=== PATIENT | female | born 1975 | race Caucasian/White ===

== ENCOUNTER 2019-05-04 13:32 | Emergency (ER) | payer MEDICAID ==
[~2019-05-04] VITALS: Ht 175.3 cm; Wt 108.9 kg
[2019-05-04] MEDS ORDERED: ALBUTEROL SULF 2.5 MG/0.5ML(0.5%) NEB SOLN ONE (13:44)
[2019-05-04] MEDS ORDERED: IPRATROPIUM BROM 0.5 MG/2.5ML INH SOL ONE (13:44)
[2019-05-04] MEDS ORDERED: methylPREDNISolone SOD SUCC 125 MG/2 ML VL IV ONE (13:45)
[2019-05-04] MEDS ORDERED: ALBUTEROL SULF 2.5 MG/0.5ML(0.5%) NEB SOLN NEB ONE (13:45)
[2019-05-04] MEDS ORDERED: IPRATROPIUM BROM 0.5 MG/2.5ML INH SOL NEB ONE (13:45)
[2019-05-04] MEDS ORDERED: SODIUM CHLORIDE 0.9% 1,000 ML IV ONE (13:47)
[2019-05-04 14:08] LABS: Hemoglobin 12.8 g/dL (12.2-16.2); Mean Corpuscular Hemoglobin 30.6 pg (28.0-32.0); Mean Corpuscular Hgb Conc. 32.9 g/dL (32.0-36.0); Mean Corpuscular Volume 92.9 fL (80.0-100.0); Platelet Count (auto) 193 10^3/uL (140-450); Red Cell Distribution Width 16.6 % (11.8-14.3); White Blood Cell 7.7 10^3/uL (4.4-10.8)
[2019-05-04 14:21] LABS: Basophils % (manual) 0 (0.0-2.0); Blast Cells 0; Eosinophils % (manual) 0 (0-7); Metamyelocytes % 0; Myelocytes % 0; Promyelocytes % 0; Reactive Lymphocytes 0
[2019-05-04 14:24] LABS: Albumin 3.7 g/dL (3.4-5.0); BUN/Creatinine Ratio 12.5; Calcium 8.4 mg/dL (8.5-10.1); INR 0.98 (0.9-1.15); Partial Thromboplastin Time 26.8 sec (23.64-32.05); Potassium 3.7 mmol/L (3.5-5.1)
[2019-05-04 14:27] LABS: Bilirubin, Total 0.3 mg/dL (0.2-1.0); Total Protein 7.1 g/dL (6.4-8.2)
[2019-05-04 14:43] LABS: Band Neutrophils % (manual) 7; Lymphocytes % (manual) 21 (10.0-50.0); Monocytes % (manual) 12 (0-12)
[2019-05-04 17:10] VITALS: BP 128/62
== END 2019-05-04 17:58 | disposition home or self-care (01) ==
LOC: EDBD 13:32 → ER 13:35
DX: J45.901 Unspecified asthma with (acute) exacerbation (principal); C50.919 Malignant neoplasm of unspecified site of unspecified female breast; K21.9 Gastro-esophageal reflux disease without esophagitis; Z98.51 Tubal ligation status
CPT/HCPCS: 36415; 71046; 80053; 83880; 84484; 85007; 85027; 85610; 85730; 93005; 94640; 96374; 99284; J2930; J7030; J7611; J7644